=== PATIENT | female | born 1980 | race Caucasian/White ===

== ENCOUNTER 2023-06-22 07:58 | Day surgery (SDC) | payer OTHER ==
[2023-06-22] MEDS ORDERED: LACTATED RINGERS 1,000 ML IV ONE (08:21)
[2023-06-22 08:24] LABS: HCG UR QUAL NEGATIVE
--- NOTE | 2023-06-22 09:04 | ANESTHESIA ---
Pre-Anesthesia VS, & Labs - Diagnosis reflux - Procedure EGD Vital Signs: Temp Pulse Resp BP Pulse Ox O2 Flow Rate 36.4 C L 71 14 99/60 98 06/22/23 08:24 06/22/23 08:24 06/22/23 08:24 06/22/23 08:24 06/22/23 08:24 Height: 5 ft 2 in Weight (kg): 79.38 kg Body Mass Index: 32.0 BMI Classification: Obese - NPO >8 hours - Is Patient ?: No - Lab Results Lab results reviewed: Yes Home Medications and Allergies Home Medications: Ambulatory Orders Cholecalciferol [Vitamin D3] 5,000 unit PO DAILY 06/22/23 Fluticasone [Flonase] 1 inh SHAYLA DAILY 06/22/23 Levocetirizine Dihydrochloride [Xyzal] 5 mg PO DAILY 06/22/23 Pantoprazole [Protonix] 40 mg PO BID 06/22/23 Semaglutide [Ozempic] 0.5 mg SQ OAW 06/22/23 buPROPion [Wellbutrin Sr] 150 mg PO QPM 06/22/23 Cholecalciferol [Vitamin D3] 5,000 unit PO DAILY 06/22/23 Fluticasone [Flonase] 1 inh SHAYLA DAILY 06/22/23 Levocetirizine Dihydrochloride [Xyzal] 5 mg PO DAILY 06/22/23 Pantoprazole [Protonix] 40 mg PO BID 06/22/23 Semaglutide [Ozempic] 0.5 mg SQ OAW 06/22/23 buPROPion [Wellbutrin Sr] 150 mg PO QPM 06/22/23 Allergies/Adverse Reactions: Allergies Allergy/AdvReac Type Severity Reaction Status Date / Time gemifloxacin [From Factive] Allergy Hives Verified 06/22/23 08:13 Anes History & Medical History - Anesthetic History Anesthesia Complications: reports: No previous complications Family history of Anesthesia Complications: Denies Family history of Malignant Hyperthermia: Denies - Medical History Cardiovascular: reports: None Pulmonary: reports: Asthma Gastrointestinal: reports: GERD Urinary: reports: None Neuro: reports: None Musculoskeletal: reports: None Endocrine/Autoimmune: reports: None Blood Disorders: reports: None Skin: reports: None Smoking Status: Never smoker - Surgical History General: reports: Cholecystectomy, Gastric surgery Eyes Ears Nose Throat (EENT): reports: Tonsil/Adenoidectomy Gynecologic: reports: Breast reduction Exam General: Alert, Oriented x3, Cooperative Dental: WNL Mouth Openin Fingerbreadth Neck Mobility: Normal Mallampati classification: II Thyromental Distance: 4-6 cm Respiratory: Lungs clear Cardiovascular: Regular rate Plan Anesthesia Type: General, MAC Consent for Procedure(s) Verified and Reviewed: Yes Code Status: Attempt Resuscitation ASA classification: 2-Mild systemic disease Is this case an emergency?: No
[2023-06-22] MEDS ORDERED: LACTATED RINGERS 600 ML IV ONE (09:21)
[2023-06-22] MEDS ORDERED: PROPOFOL 500 MG/50 ML 500 MG/50 ML VIAL ONE (09:23)
[2023-06-22] MEDS ORDERED: LIDOCAINE-PF 2% 10 ML AMP SUBQ ONE (09:23)
[2023-06-22 09:33] VITALS: BP 101/58
--- NOTE | 2023-06-22 10:41 | ANESTHESIA POST OP EVALUATION ---
Anesthesia Post Eval - Post Anesthesia Eval Vitals: Last Vital Signs Temp 36.0 C L 06/22/23 09:21 Pulse 63 06/22/23 09:29 Resp 18 06/22/23 09:29 BP 101/58 L 06/22/23 09:29 Pulse Ox 100 06/22/23 09:29 O2 Flow Rate CV Function Including HR & BP: Stable Pain Control: Satisfactory Nausea & Vomiting: Negative Mental Status: Baseline Respiratory Status: Airway Patent Hydration Status: Satisfactory Anesthesia Complications: None
== END 2023-06-22 07:59 | disposition home or self-care (01) ==
LOC: SDS 07:58
PROVIDERS: ATTEND Surgery
PROC: 0DB58ZX Excision of Esophagus, Via Natural or Artificial Opening Endoscopic, Diagnostic (ICD-10-PCS; principal; 2023-06-22 09:00)
DX: K21.9 Gastro-esophageal reflux disease without esophagitis (principal); E66.9 Obesity, unspecified; J45.990 Exercise induced bronchospasm; Z32.02 Encounter for pregnancy test, result negative; Z68.32 Body mass index [BMI] 32.0-32.9, adult; Z98.84 Bariatric surgery status
CPT/HCPCS: 43239; 81025; J7120

== ENCOUNTER 2023-09-08 10:19 | Outpatient (CLI) | payer OTHER ==
--- NOTE | 2023-09-08 10:48 | XRAY Report ---
PROCEDURE: Humerus RT INDICATIONS: ARM PAIN RIGHT TECHNIQUE: 2 views of the humerus were acquired. COMPARISON: None. FINDINGS: Bones: No fractures or dislocations. No suspicious bony lesions. Soft tissues: No suspicious soft tissue calcifications or masses. IMPRESSION: No acute bony abnormality. Reviewed by: Jairo Lino MD on 09/08/2023 10:47 AM PDT Approved by: Jairo Lino MD on 09/08/2023 10:47 AM PDT Station ID: [id number]
== END 2023-09-08 10:20 | disposition home or self-care (01) ==
LOC: DI 10:19
PROVIDERS: ATTEND Physician Assistant Medical
DX: M79.601 Pain in right arm (principal)

== ENCOUNTER 2024-01-16 08:19 | Outpatient (CLI) | payer OTHER ==
[2024-01-16 12:32] LABS: BASOPHILS # (AUTO) 0.1 10^3/uL (0.0-0.1); BASOPHILS % (AUTO) 0.9 %; EOSINOPHILS # (AUTO) 0.8 10^3/uL (0.0-0.7); EOSINOPHILS % (AUTO) 12.4 %; HCT - HEMATOCRIT 37.6 % (37.0-47.0); HGB - HEMOGLOBIN 12.1 g/dL (12.0-16.0); LYMPHOCYTES # (AUTO) 1.5 10^3/uL (1.5-3.5); LYMPHOCYTES % (AUTO) 23.8 %; MEAN CORPUSCULAR HEMOGLOBIN 30.9 pg (27.0-31.0); MEAN CORPUSCULAR HGB CONC 32.2 g/dL (32.0-36.0); MEAN CORPUSCULAR VOLUME 95.9 fL (81.0-99.0); MEAN PLATELET VOLUME 11.4 fL (7.9-10.8); MONOCYTES # (AUTO) 0.5 10^3/uL (0.0-1.0); MONOCYTES % (AUTO) 7.6 %; NEUTROPHILS # (AUTO) 3.5 10^3/uL (1.5-6.6); PLT - PLATELET COUNT 204 10^3/uL (130-450); RED BLOOD COUNT 3.92 10^6/uL (4.20-5.40); RED CELL DISTRIBUTION WIDTH 14.8 % (12.0-15.0); WHITE BLOOD COUNT 6.4 x10^3/uL (4.8-10.8)
[2024-01-16 14:34] LABS: ALBUMIN/GLOBULIN RATIO 1.7 (1.0-2.2); BILIRUBIN,TOTAL 0.7 mg/dL (0.2-1.0); CALCIUM 9.1 mg/dL (8.5-10.3); CREATININE 0.6 mg/dL (0.6-1.3); POTASSIUM 3.8 mmol/L (3.5-4.5); TOTAL PROTEIN 6.3 g/dL (6.4-8.9)
[2024-01-16 14:42] LABS: THYROID STIMULATING HORMONE 2.15 uIU/mL (0.34-5.60)
[2024-01-16 14:44] LABS: FERRITIN 26.2 ng/mL (11.0-306.8)
== END 2024-01-16 08:20 | disposition home or self-care (01) ==
LOC: LAB.N 08:19
PROVIDERS: ATTEND Physician Assistant
DX: R14.0 Abdominal distension (gaseous) (principal); R10.9 Unspecified abdominal pain
CPT/HCPCS: 36415; 80053; 82150; 82728; 83690; 84443; 85025

== ENCOUNTER 2024-01-31 11:46 | Outpatient (CLI) | payer OTHER ==
[2024-01-31] MEDS ORDERED: iohexoL-300 100 ML VIAL ONE (11:50)
[2024-01-31] MEDS ORDERED: DIATRIZOATE MEGLU/DIATRIZO SOD 30 ML BOTTLE PO ONE (11:50)
--- NOTE | 2024-01-31 14:10 | CT Report ---
PROCEDURE: Abdomen/Pelvis W INDICATIONS: ABD BLOATING, ABD PAIN CONTRAST: Omni 300- 100ml TECHNIQUE: After the administration of intravenous contrast, a CT scan of the abdomen and pelvis was performed. Images were recorded and evaluated at appropriate window settings. Reformats: coronal and sagittal. F or radiation dose reduction, the following was used: automated exposure control, adjustment of mA and /or kV according to patient size. COMPARISON: None. FINDINGS: Image quality: Diagnostic. Lower chest: Unremarkable. Liver: Hepatic steatosis. Hepatic cyst in segment 7 measuring 1.5 cm. Gallbladder and biliary tree: Surgically absent. No biliary dilation, accounting for post-cholecystec danny state. Spleen: No splenomegaly. Pancreas: No pancreatic ductal dilation. Adrenals: No adrenal nodule. Kidneys and ureters: No hydronephrosis. No renal cystic lesion which requires follow up. No solid mas s. Stomach, bowel and peritoneum: No bowel distension. No pathologic free fluid. Gastric sleeve surgery. Normal appendix. Lymph nodes: No central or retroperitoneal adenopathy. Vessels: No infrarenal aortic aneurysm. PELVIS Reproductive organs: IUD within the central uterus. Left-sided corpus luteum. Bladder: No abnormal wall thickening, accounting for underdistention. Pelvic lymph nodes: No pelvic adenopathy by size criteria. Bones: No aggressive osseous abnormality. Other: Small focal hernia containing fat. IMPRESSION: No acute findings to explain the patient's abdominal bloating and pain. Reviewed by: Antolin Bey MD on 01/31/2024 2:08 PM PDT Approved by: Antolin Bey MD on 01/31/2024 2:08 PM PDT Station ID: [id number]
[2024-01-31] MEDS: iohexoL-300 100 ML VIAL IVP ONE (14:36)
[2024-01-31] MEDS: DIATRIZOATE MEGLU/DIATRIZO SOD 30 ML BOTTLE PO ONE (14:37)
== END 2024-01-31 11:47 | disposition home or self-care (01) ==
LOC: DI 11:46
PROVIDERS: ATTEND Physician Assistant
DX: R14.0 Abdominal distension (gaseous) (principal); R10.9 Unspecified abdominal pain
CPT/HCPCS: 74177; Q9963; Q9967